=== PATIENT | male | born 1980 | race Two or more races ===

== ENCOUNTER 2024-07-17 00:24 | Emergency (ER) | payer OTHER ==
[2024-07-17 00:35] VITALS: BP 166/109; PULSE 95; RESP 20; TEMP 98.4; BMI 43.4
[2024-07-17] MEDS ORDERED: KETOROLAC TROMETHAMINE 60 MG/2 ML VIAL ONE (00:43)
[2024-07-17] MEDS ORDERED: LIDOCAINE 5% TOPICAL PATCH ONE (00:44)
[2024-07-17] MEDS: KETOROLAC TROMETHAMINE 60 MG/2 ML VIAL IM ONE (00:54)
[2024-07-17] MEDS: LIDOCAINE 5% TOPICAL PATCH TP ONE (00:54)
[2024-07-17] MEDS ORDERED: LIDOCAINE PATCH REMOVAL MC SCH (22:00)
== END 2024-07-17 01:41 | disposition home or self-care (01) ==
LOC: FER 00:24
PROC: 3E0233Z Introduction of Anti-inflammatory into Muscle, Percutaneous Approach (ICD-10-PCS; principal; 2024-07-17)
DX: M25.512 Pain in left shoulder (principal); X50.1XXA Overexertion from prolonged static or awkward postures, initial encounter
CPT/HCPCS: 93005; 99284-25

== ENCOUNTER 2024-07-17 03:28 | Emergency (ER) | payer OTHER ==
[2024-07-17 03:36] VITALS: BP 183/110; PULSE 92; RESP 18; TEMP 98.1; BMI 43.6
[2024-07-17] MEDS ORDERED: NAPROXEN 500 MG TABLET ONE (03:39)
[2024-07-17] MEDS: NAPROXEN 500 MG TABLET PO ONE (03:42)
[2024-07-17] MEDS ORDERED: predniSONE 20 MG TABLET (UD) ONE (03:47)
[2024-07-17] MEDS: predniSONE 20 MG TABLET (UD) PO ONE (03:53)
== END 2024-07-17 04:48 | disposition home or self-care (01) ==
LOC: FER 03:28
DX: M25.512 Pain in left shoulder (principal); X50.1XXA Overexertion from prolonged static or awkward postures, initial encounter
CPT/HCPCS: 99283-25